=== PATIENT | male | born 1985 | race Caucasian/White ===

== ENCOUNTER 2016-11-21 20:47 | Emergency (ER) | payer SELFPAY ==
[2016-11-21] MEDS ORDERED: Lorazepam 1 MG TAB ONE (22:05)
[2016-11-21 22:10] LABS: #Basophils 0.1 thou/uL (0.0-0.2); #Eosinphils 0.2 thou/uL (0.0-0.7); #Lymphocytes 2.2 thou/uL (1.20-3.40); #Monocytes 0.9 thou/uL (0.11-0.59); #Neutrophils 7.4 thou/uL (1.40-6.50); %Basophils 0.9 % (0.0-1.0); %Eosinophils 1.5 % (0.0-10.0); %Lymphocytes 20.1 % (21.0-51.0); %Monocytes 8.5 % (0.0-10.0); Hematocrit 48.9 % (42.0-52.0); Mean Platelet Volume 6.7 fL (7.4-10.4); Red Blood Cell (RBC) Count 5.05 mill/uL (4.70-6.10); White Blood Cell (WBC) Count 10.7 thou/uL (4.8-10.8)
[2016-11-21 22:23] LABS: Acetaminophen Less than 6.0 mcg/mL (10.0-30.0); Salicylate Less than 8.0 mg/dL (15.0-30.0)
[2016-11-21 22:27] LABS: Amphetamine Detected (NotDetected); Methadone Not Detected (NotDetected); Methamphetamine Detected (NotDetected)
[2016-11-21 22:29] LABS: ALT (SGPT) 33 U/L (8-55); AST (SGOT) 33 U/L (5-34); Alkaline Phosphatase 67 U/L (40-150); Anion Gap 13 mmol/L (10-20); BUN (Urea Nitrogen) 11 mg/dL (8.9-20.6); Bilirubin, Total 1.5 mg/dL (0.2-1.2); Calc. Creatinine Clearance 0 mL/min (70-130); Carbon Dioxide 27 mmol/L (22-29); Chloride 102 mmol/L (98-107); Estimated GFR-MDRD 89; Protein, Total 7.8 g/dL (6.0-8.3)
== END 2016-11-21 22:46 | disposition home or self-care (01) ==
LOC: ERS 20:47
DX: F41.9 Anxiety disorder, unspecified (principal); F19.10 Other psychoactive substance abuse, uncomplicated; F31.9 Bipolar disorder, unspecified; F20.9 Schizophrenia, unspecified; F17.210 Nicotine dependence, cigarettes, uncomplicated
CPT/HCPCS: 36415; 80053; 80306; 80307; 84443; 85025; 99283

== ENCOUNTER 2016-11-22 04:10 | Emergency (ER) | payer SELFPAY ==
[2016-11-22] MEDS ORDERED: Lorazepam 2 MG/ML VIAL ONE (04:30)
[2016-11-22 04:59] LABS: Anion Gap 17 mmol/L (10-20); BUN (Urea Nitrogen) 16 mg/dL (8.9-20.6); CK (CPK) 655 U/L (30-200); Calc. Creatinine Clearance 0 mL/min (70-130); Calcium 10.7 mg/dL (7.8-10.44); Carbon Dioxide 24 mmol/L (22-29); Chloride 103 mmol/L (98-107); Estimated GFR-MDRD 62
[2016-11-22 05:05] LABS: Acetaminophen Less than 6.0 mcg/mL (10.0-30.0); Salicylate Less than 8.0 mg/dL (15.0-30.0)
--- NOTE | 2016-11-23 14:38 | EKG ---
Test Reason : Blood Pressure : / mmHG Vent. Rate : 129 BPM Atrial Rate : 129 BPM P-R Int : 146 ms QRS Dur : 076 ms QT Int : 292 ms P-R-T Axes : 063 092 041 degrees QTc Int : 427 ms Sinus tachycardia Rightward axis Borderline ECG Confirmed by DANIELLA NEVAREZ, NIXON ([id number]), managing editor ROMELIA JAMES ([id number]) on 11/23/2016 2:38:25 PM Referred By: Confirmed By:NIOXN BREWER MD
== END 2016-11-22 05:39 ==
LOC: ERS 04:10
DX: F23 Brief psychotic disorder (principal); F15.10 Other stimulant abuse, uncomplicated; F31.9 Bipolar disorder, unspecified; F41.9 Anxiety disorder, unspecified; F17.210 Nicotine dependence, cigarettes, uncomplicated
CPT/HCPCS: 80048; 80307; 82550; 93005; 96361; 96374; J2060

== ENCOUNTER 2017-05-23 08:08 | Emergency (ER) | payer SELFPAY | END 2017-05-23 08:46 | disposition home or self-care (01) | LOC: ERS 08:08 | DX: F41.9 Anxiety disorder, unspecified (principal); K04.7 Periapical abscess without sinus; F31.9 Bipolar disorder, unspecified; F20.9 Schizophrenia, unspecified; F17.210 Nicotine dependence, cigarettes, uncomplicated | CPT/HCPCS: 99283 ==

== ENCOUNTER 2017-10-19 06:06 | Emergency (ER) | payer OTHER, SELFPAY ==
[2017-10-19 07:16] LABS: Hemoglobin 13.6 g/dL (14.0-18.0); Mean Corpuscular HGB CONC 34.9 g/dL (32.0-36.0); Mean Corpuscular Hemoglobin 33.3 pg (27.0-31.0); Mean Corpuscular Volume 95.3 fL (78.0-98.0); Mean Platelet Volume 7.7 fL (7.4-10.4); Platelet Count 282 thou/uL (130-400); RBC Distribution Width 11.7 % (11.5-14.5); Red Blood Cell (RBC) Count 4.09 mill/uL (4.70-6.10)
[2017-10-19 07:18] LABS: ALT (SGPT) 21 U/L (8-55); AST (SGOT) 23 U/L (5-34); Acetaminophen Less than 6.0 mcg/mL (10.0-30.0); Albumin 4.4 g/dL (3.5-5.0); Alcohol Less than 10 mg/dL (Less than 10); Alkaline Phosphatase 61 U/L (40-150); Anion Gap 13 mmol/L (10-20); BUN (Urea Nitrogen) 12 mg/dL (8.9-20.6); Bilirubin, Total 1.5 mg/dL (0.2-1.2); Calc. Creatinine Clearance 0 mL/min (70-130); Calcium 9.4 mg/dL (7.8-10.44); Carbon Dioxide 28 mmol/L (22-29); Chloride 98 mmol/L (98-107); Estimated GFR-MDRD 79; Globulin 2.6 g/dL (2.4-3.5); Glucose 123 mg/dL (70-105); Potassium 4.1 mmol/L (3.5-5.1); Salicylate Less than 8.0 mg/dL (15.0-30.0); Sodium 135 mmol/L (136-145)
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
[2017-10-19 07:44] LABS: Band 6 % (5-11); Lymphocytes 14 % (21-51); MDiff Complete? YES; Monocytes 6 % (0-10); Neutrophil 74 % (42-75); PLT Morphology Comment Appears Adequate; RBC Morphology Normal
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
[2017-10-19 09:37] LABS: Bilirubin Negative (Negative); Blood, Urine Negative (Negative); Clarity CLEAR (Clear); Glucose, Urine (Dipstick) Negative (Negative); Leukocyte Negative (Negative); Nitrite Negative (Negative); Protein, Urine (Dipstick) Negative (Neg-Trace); Specific Gravity, Urine 1.006 (1.002-1.036); Urobilinogen 0.2 mg/dL (0.2-1.0)
[2017-10-19 09:44] LABS: Amphetamine Not Detected (NotDetected); Barbiturates Screen Not Detected (NotDetected); Benzodiazepine Screen Detected (NotDetected); Cocaine Metabolite Screen Not Detected (NotDetected); Medtox Control Line Valid? VALID (VALID); Medtox Reader # READER 4; Methadone Not Detected (NotDetected); Methamphetamine Not Detected (NotDetected); Opiate Screen Not Detected (NotDetected); Oxycodone Screen Not Detected (NotDetected); Phencyclidine (PCP) Not Detected (NotDetected); THC/Cannabinoid Screen Detected (NotDetected); Tricyclic Screen Not Detected (NotDetected)
--- NOTE | 2017-11-01 17:55 | EKG ---
Test Reason : AMS Blood Pressure : / mmHG Vent. Rate : 078 BPM Atrial Rate : 078 BPM P-R Int : 158 ms QRS Dur : 082 ms QT Int : 380 ms P-R-T Axes : 038 078 023 degrees QTc Int : 433 ms Normal sinus rhythm Normal ECG Confirmed by AUDIE TURNER DO ([id number]), rewrite editor JEREMY HERMOSILLO ([id number]) on 11/01/2017 5:55:06 PM Referred By: Confirmed By:AUDIE TURNER DO
== END 2017-10-19 12:30 | disposition home or self-care (01) ==
LOC: ERS 06:06
DX: F19.10 Other psychoactive substance abuse, uncomplicated (principal); F41.9 Anxiety disorder, unspecified; F31.9 Bipolar disorder, unspecified; F20.9 Schizophrenia, unspecified; F17.210 Nicotine dependence, cigarettes, uncomplicated
CPT/HCPCS: 70450; 71045; 80053; 80306; 80307; 81003; 85025; 93005; 96360; 96361; 99406

== ENCOUNTER 2017-12-21 19:34 | Emergency (ER) | payer OTHER, SELFPAY | END 2017-12-21 19:58 | disposition home or self-care (01) | LOC: ERS 19:34 | DX: F41.9 Anxiety disorder, unspecified (principal); Z76.0 Encounter for issue of repeat prescription; Z71.6 Tobacco abuse counseling; F31.9 Bipolar disorder, unspecified; F17.210 Nicotine dependence, cigarettes, uncomplicated; Z79.899 Other long term (current) drug therapy | CPT/HCPCS: 99406 ==

== ENCOUNTER 2018-02-08 19:37 | Emergency (ER) | payer SELFPAY ==
[2018-02-08 20:10] LABS: #Basophils 0.1 thou/uL (0.0-0.2); #Lymphocytes 1.6 thou/uL (1.20-3.40); #Monocytes 0.6 thou/uL (0.11-0.59); #Neutrophils 9.9 thou/uL (1.40-6.50); %Basophils 0.6 % (0.0-1.0); %Eosinophils 0.3 % (0.0-10.0); %Lymphocytes 13.3 % (21.0-51.0); %Monocytes 4.6 % (0.0-10.0); %Neutrophils 81.2 % (42.0-75.0); Hemoglobin 19.1 g/dL (14.0-18.0); Mean Corpuscular HGB CONC 34.4 g/dL (32.0-36.0); Mean Corpuscular Hemoglobin 31.7 pg (27.0-31.0); Mean Platelet Volume 7.4 fL (7.4-10.4); Platelet Count 296 thou/uL (130-400); RBC Distribution Width 11.6 % (11.5-14.5); Red Blood Cell (RBC) Count 6.02 mill/uL (4.70-6.10); White Blood Cell (WBC) Count 12.1 thou/uL (4.8-10.8)
[2018-02-08 20:36] LABS: ALT (SGPT) 20 U/L (8-55); AST (SGOT) 17 U/L (5-34); Albumin 4.3 g/dL (3.5-5.0); Alkaline Phosphatase 67 U/L (40-150); Anion Gap 12 mmol/L (10-20); BUN (Urea Nitrogen) 12 mg/dL (8.9-20.6); Bilirubin, Total 1.6 mg/dL (0.2-1.2); Calc. Creatinine Clearance 0 mL/min (70-130); Calcium 9.5 mg/dL (7.8-10.44); Carbon Dioxide 22 mmol/L (22-29); Chloride 106 mmol/L (98-107); Estimated GFR-MDRD 89; Globulin 2.6 g/dL (2.4-3.5); Glucose 105 mg/dL (70-105); Potassium 3.8 mmol/L (3.5-5.1); Protein, Total 6.9 g/dL (6.0-8.3); Sodium 136 mmol/L (136-145)
[2018-02-08 21:33] LABS: Bilirubin Small (Negative); Blood, Urine Negative (Negative); Clarity CLEAR (Clear); Glucose, Urine (Dipstick) Negative (Negative); Leukocyte Negative (Negative); Nitrite Negative (Negative); Protein, Urine (Dipstick) 30 mg/dL (Neg-Trace); Specific Gravity, Urine 1.031 (1.002-1.036); pH, Urine 6.5 (5.0-9.0)
[2018-02-08 21:35] LABS: Bacteria/HPF None Seen HPF (None Seen); Pathc Cast-AUWi Flag 1.74 (0-2.49); RBC/HPF 0-3 HPF (0-3); Squamous Epithelial 0-3 HPF (0-3); WBC/HPF 0-3 HPF (0-3)
[2018-02-08 21:42] LABS: Amphetamine Not Detected (NotDetected); Barbiturates Screen Not Detected (NotDetected); Benzodiazepine Screen Detected (NotDetected); Cocaine Metabolite Screen Not Detected (NotDetected); Medtox Control Line Valid? VALID (VALID); Medtox Reader # READER 1; Methadone Not Detected (NotDetected); Methamphetamine Not Detected (NotDetected); Opiate Screen Detected (NotDetected); Oxycodone Screen Not Detected (NotDetected); Phencyclidine (PCP) Not Detected (NotDetected); THC/Cannabinoid Screen Detected (NotDetected); Tricyclic Screen Not Detected (NotDetected)
[2018-02-08] MEDS ORDERED: Ondansetron ODT 4 MG TAB ONE (21:45)
[2018-02-08] MEDS ORDERED: ALPRAZolam 0.25 MG TAB ONE (22:01)
--- NOTE | 2018-02-08 22:04 | CT ---
HEAD CT WITHOUT CONTRAST: Comparison: 10-19-17 History: Slurred speech, dizziness. FINDINGS: No parenchymal hemorrhage. No extraaxial hematoma. No midline shift. Basilar cisterns are patent. Bra in volume, age appropriate. Cortical thayer white matter differentiation preserved. Ventricles and sulc i are patent and symmetric. Adequate aeration of the sinuses and mastoid air cells. Calvarium is inta ct. IMPRESSION: No acute intracranial process. POS: [facility]
== END 2018-02-08 23:05 | disposition home or self-care (01) ==
LOC: ERS 19:37
DX: F19.230 Other psychoactive substance dependence with withdrawal, uncomplicated (principal); R11.2 Nausea with vomiting, unspecified; F41.9 Anxiety disorder, unspecified; Z79.899 Other long term (current) drug therapy; F31.9 Bipolar disorder, unspecified
CPT/HCPCS: 36415; 70450; 80053; 80306; 81003; 81015; 85025; 93005; Q0162

== ENCOUNTER 2018-02-09 17:34 | Emergency (ER) | payer SELFPAY ==
[2018-02-09] MEDS ORDERED: Gentamicin Ophth Soln 0.3% 5 ml Bottle ONE (18:37)
[2018-02-09] MEDS ORDERED: cloNIDine 0.1 MG TAB ONE (18:37)
[2018-02-09] MEDS ORDERED: Divalproex Sodium DR 500 MG TAB PO SCH (18:45)
== END 2018-02-09 21:04 | disposition home or self-care (01) ==
LOC: ERS 17:34
DX: S05.02XA Injury of conjunctiva and corneal abrasion without foreign body, left eye, initial encounter (principal); F11.23 Opioid dependence with withdrawal; F13.20 Sedative, hypnotic or anxiolytic dependence, uncomplicated; F41.9 Anxiety disorder, unspecified; F31.9 Bipolar disorder, unspecified; Z79.899 Other long term (current) drug therapy; X58.XXXA Exposure to other specified factors, initial encounter
CPT/HCPCS: 99283

== ENCOUNTER 2018-05-28 09:43 | Inpatient (IN) | payer OTHER, SELFPAY ==
[2018-05-28] MEDS ORDERED: Lorazepam 2 MG/ML VIAL ONE (10:09)
[2018-05-28] MEDS ORDERED: Haloperidol Lactate 5 MG/ML VIAL ONE (10:20)
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
[2018-05-28] MEDS ORDERED: ISOVUE-370 76%-LOCM 1 ML ONE (10:34)
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
[2018-05-28] MEDS ORDERED: Adacel (T-DAP) 0.5 ML SYRINGE ONE (10:52)
[2018-05-28] MEDS ORDERED: Ondansetron PF 4 MG/2 ML Vial ONE (10:52)
[2018-05-28 10:59] LABS: #Basophils 0.1 thou/uL (0.0-0.2); #Eosinphils 0.1 thou/uL (0.0-0.7); #Lymphocytes 1.9 thou/uL (1.20-3.40); #Monocytes 1.4 thou/uL (0.11-0.59); #Neutrophils 14.6 thou/uL (1.40-6.50); %Basophils 0.3 % (0.0-1.0); %Eosinophils 0.5 % (0.0-10.0); %Lymphocytes 10.3 % (21.0-51.0); %Monocytes 7.5 % (0.0-10.0); %Neutrophils 81.4 % (42.0-75.0); Hemoglobin 14.6 g/dL (14.0-18.0); Mean Corpuscular HGB CONC 34.3 g/dL (32.0-36.0); Mean Corpuscular Hemoglobin 32.5 pg (27.0-31.0); Mean Corpuscular Volume 94.6 fL (78.0-98.0); Mean Platelet Volume 7.6 fL (7.4-10.4); Platelet Count 287 thou/uL (130-400); RBC Distribution Width 11.8 % (11.5-14.5)
[2018-05-28] MEDS ORDERED: Lidocaine 1% w/Epinephrine 1:100K 20 ML VIAL ONE (11:21)
[2018-05-28 11:25] LABS: ALT (SGPT) 26 U/L (8-55); AST (SGOT) 29 U/L (5-34); Albumin 4.3 g/dL (3.5-5.0); Alcohol Less than 10 mg/dL (Less than 10); Alkaline Phosphatase 69 U/L (40-150); Anion Gap 15 mmol/L (10-20); BUN (Urea Nitrogen) 17 mg/dL (8.9-20.6); Bilirubin, Total 2.7 mg/dL (0.2-1.2); Calc. Creatinine Clearance 0 mL/min (70-130); Calcium 9.4 mg/dL (7.8-10.44); Carbon Dioxide 20 mmol/L (22-29); Chloride 105 mmol/L (98-107); Estimated GFR-MDRD 70; Globulin 2.3 g/dL (2.4-3.5); Glucose 96 mg/dL (70-105); Potassium 3.6 mmol/L (3.5-5.1); Protein, Total 6.6 g/dL (6.0-8.3); Sodium 136 mmol/L (136-145)
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
[2018-05-28 11:46] LABS: Amphetamine Detected (NotDetected); Barbiturates Screen Not Detected (NotDetected); Benzodiazepine Screen Detected (NotDetected); Cocaine Metabolite Screen Not Detected (NotDetected); Medtox Control Line Valid? VALID (VALID); Medtox Reader # READER 4; Methadone Not Detected (NotDetected); Methamphetamine Detected (NotDetected); Opiate Screen Not Detected (NotDetected); Oxycodone Screen Not Detected (NotDetected); Phencyclidine (PCP) Detected (NotDetected); THC/Cannabinoid Screen Detected (NotDetected); Tricyclic Screen Not Detected (NotDetected)
[2018-05-28] MEDS ORDERED: Dextrose 50% Abboject 50 ML SYRINGE SLOW IVP PRN ×2 (11:50→17:15)
[2018-05-28] MEDS ORDERED: Dextrose 5% in Water 1,000 ML IV PRN ×2 (11:50→17:15)
[2018-05-28] MEDS ORDERED: Promethazine HCl 25 MG/ML VIAL IM PRN (11:50)
[2018-05-28] MEDS ORDERED: Ondansetron PF 4 MG/2 ML Vial IVP PRN ×2 (11:50→17:15)
[2018-05-28] MEDS ORDERED: traMADol HCl 50 MG TAB PO PRN ×2 (11:54)
[2018-05-28] MEDS ORDERED: Ibuprofen 600 MG TAB PO PRN (11:54)
[2018-05-28] MEDS ORDERED: Sodium Chloride 0.9% 1,000 ML IV SCH (12:00)
[2018-05-28] MEDS ORDERED: Acetaminophen 500 MG TAB PO SCH (12:00)
[2018-05-28] MEDS ORDERED: ALPRAZolam 1 MG TAB PO PRN (12:00)
[2018-05-28 17:15] VITALS: BMI 28.6
[2018-05-28] MEDS ORDERED: hydrALAZINE 20 MG/ML VIAL SLOW IVP PRN (17:15)
[2018-05-28] MEDS ORDERED: Ondansetron ODT 4 MG TAB PO PRN (17:15)
[2018-05-28] MEDS ORDERED: Cyclobenzaprine 10 MG TAB PO PRN (17:15)
[2018-05-28] MEDS ORDERED: Acetaminophen 1,000 MG in Premix Bag 1 BAG IVPB SCH (18:00)
[2018-05-28] MEDS: Sodium Chloride 0.9% 1,000 ML IV SCH (18:18)
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
[2018-05-28] MEDS ORDERED: Famotidine 20 MG TAB PO SCH (21:00)
[2018-05-28] MEDS: traMADol HCl 50 MG TAB PO PRN (21:53)
[2018-05-28] MEDS: Famotidine 20 MG TAB PO SCH (21:53)
[2018-05-28] MEDS: ALPRAZolam 0.5 MG TAB PO PRN (21:54)
[2018-05-28] MEDS: Acetaminophen 500 MG TAB PO SCH (23:57)
[2018-05-29] MEDS: Sodium Chloride 0.9% 1,000 ML IV SCH ×2 (01:48→10:24)
[2018-05-29] MEDS: Acetaminophen 500 MG TAB PO SCH (01:55)
[2018-05-29] MEDS: traMADol HCl 50 MG TAB PO PRN (03:01)
[2018-05-29 04:24] LABS: #Eosinphils 0.3 thou/uL (0.0-0.7); #Lymphocytes 1.8 thou/uL (1.20-3.40); #Monocytes 0.9 thou/uL (0.11-0.59); #Neutrophils 4.2 thou/uL (1.40-6.50); %Basophils 0.4 % (0.0-1.0); %Eosinophils 3.5 % (0.0-10.0); %Lymphocytes 25.5 % (21.0-51.0); %Monocytes 12.9 % (0.0-10.0); %Neutrophils 57.6 % (42.0-75.0); Hemoglobin 13.2 g/dL (14.0-18.0); Mean Corpuscular HGB CONC 33.9 g/dL (32.0-36.0); Mean Corpuscular Hemoglobin 32.6 pg (27.0-31.0); Mean Corpuscular Volume 96.1 fL (78.0-98.0); Mean Platelet Volume 7.5 fL (7.4-10.4); Platelet Count 243 thou/uL (130-400); RBC Distribution Width 11.8 % (11.5-14.5); Red Blood Cell (RBC) Count 4.05 mill/uL (4.70-6.10); White Blood Cell (WBC) Count 7.2 thou/uL (4.8-10.8)
[2018-05-29 04:28] LABS: Anion Gap 10 mmol/L (10-20); BUN (Urea Nitrogen) 11 mg/dL (8.9-20.6); Calc. Creatinine Clearance 158 mL/min (70-130); Calcium 8.7 mg/dL (7.8-10.44); Carbon Dioxide 26 mmol/L (22-29); Chloride 106 mmol/L (98-107); Estimated GFR-MDRD Greater than 90; Glucose 119 mg/dL (70-105); Potassium 3.7 mmol/L (3.5-5.1); Sodium 138 mmol/L (136-145)
[2018-05-29 07:06] VITALS: TEMP 98.5
[2018-05-29] MEDS: ALPRAZolam 0.5 MG TAB PO PRN (08:13)
[2018-05-29] MEDS: Famotidine 20 MG TAB PO SCH (08:13)
[2018-05-29 12:06] VITALS: BP 125/74
== END 2018-05-29 11:09 | disposition left against medical advice (07) | DRG 89 ==
LOC: ERS 09:43 → ERHOLD 13:01 → IMCU/EMU 15:36
PROVIDERS: ADMIT Surgery; ATTEND Surgery
DX: S06.0X9A Concussion with loss of consciousness of unspecified duration, initial encounter (principal); S12.501A Unspecified nondisplaced fracture of sixth cervical vertebra, initial encounter for closed fracture; V49.9XXA Car occupant (driver) (passenger) injured in unspecified traffic accident, initial encounter; Y92.410 Unspecified street and highway as the place of occurrence of the external cause; R40.2240 Coma scale, best verbal response, confused conversation, unspecified time; R40.2360 Coma scale, best motor response, obeys commands, unspecified time; R40.2140 Coma scale, eyes open, spontaneous, unspecified time; F41.9 Anxiety disorder, unspecified; S01.01XA Laceration without foreign body of scalp, initial encounter; S50.02XA Contusion of left elbow, initial encounter; F12.10 Cannabis abuse, uncomplicated; F11.10 Opioid abuse, uncomplicated
CPT/HCPCS: 36415; 70450; 71260; 72125; 74177; 80048; 80053; 80306; 80307; 85025; 86850; 86900; 86901; 90715; G0390; J0131; J0690; J1630; J2001; J2060; J2405; Q9966